=== PATIENT | male | born 1940 | race Caucasian/White ===

== ENCOUNTER 2024-07-05 18:22 | Inpatient (IN) | payer MEDICARE, OTHER ==
[~2024-07-05] VITALS: Ht 182.9 cm; Wt 67.1 kg
[2024-07-05 18:50] LABS: BASOPHILS % (AUTO) 0.4 % (0.0-2.0); EOSINOPHILS % (AUTO) 0.6 % (0.0-6.0); HEMATOCRIT 45 % (39-51); HEMOGLOBIN 15.7 g/dL (13.5-17.5); LYMPHOCYTES # (AUTO) 2.5 K/uL (0.8-4.8); LYMPHOCYTES % (AUTO) 36.4 % (20.0-44.0); MEAN CORPUSCULAR HEMOGLOBIN 31 PG (26.0-33.0); MEAN CORPUSCULAR HGB CONC 35 g/dl (31.0-36.0); MEAN CORPUSCULAR VOLUME 88 fL (80-96); MONOCYTES # (AUTO) 0.4 K/uL (0.1-1.30); MONOCYTES % (AUTO) 5.3 % (2.0-12.0); NEUTROPHILS % (AUTO) 57.3 % (43.0-81.0); PLATELET COUNT (AUTO) 191 K/uL (150-450); RED BLOOD CELL COUNT(AUTO) 5.11 MIL/uL (4.5-6.0); RED CELL DISTRIBUTION WIDTH 14.5 % (11.5-15.0); WHITE BLOOD COUNT (AUTO) 6.9 K/uL (4.3-11.0)
[2024-07-05 19:01] LABS: CALCIUM, SERUM 9.6 mg/dL (8.5-10.1); CARBON DIOXIDE 30 mmol/L (21-32); CHLORIDE 108 mmol/L (98-107); CREATININE 1.4 mg/dL (0.6-1.3); GLUCOSE 220 mg/dL (74-106); POTASSIUM 3.7 mmol/L (3.5-5.1); SODIUM SERUM 145 mmol/L (136-145); UREA NITROGEN, BLOOD 26 mg/dL (7-18)
[2024-07-05 19:11] LABS: ALANINE AMINOTRANSFERASE 30 U/L (12-78); ALBUMIN 3.3 g/dL (3.4-5.0); ALKALINE PHOSPHATASE 94 U/L (46-116); ASPARTATE AMINOTRANSFERASE 24 U/L (15-37); BILIRUBIN,DIRECT 0.1 mg/dL (0.0-0.2); BILIRUBIN,TOTAL 0.5 mg/dL (0.2-1.0); LIPASE 37 U/L (16-77); TOTAL PROTEIN, SERUM 7.1 g/dL (6.4-8.2)
[2024-07-05] MEDS ORDERED: MAGN400O6 PO (19:32)
[2024-07-05] MEDS ORDERED: AMLO-213 PO (19:32)
[2024-07-05] MEDS ORDERED: FOLI0.8T3 PO (19:32)
[2024-07-05] MEDS ORDERED: OXYC5TAB3 PO (19:32)
[2024-07-05] MEDS ORDERED: PANT40TA49 PO (19:32)
[2024-07-05] MEDS ORDERED: BACL5TAB PO (19:32)
[2024-07-05] MEDS ORDERED: NA P133E RC (19:32)
[2024-07-05] MEDS ORDERED: ACET325T53 PO (19:32)
[2024-07-05] MEDS ORDERED: ACET-73 PO (19:32)
[2024-07-05] MEDS ORDERED: ASPI-1420 PO (19:32)
[2024-07-05] MEDS ORDERED: TRAZ-182 PO (19:32)
[2024-07-05] MEDS ORDERED: NALO4SPR NS (19:32)
[2024-07-05] MEDS ORDERED: GABA-532 PO (19:32)
[2024-07-05] MEDS ORDERED: FERR325T24 PO (19:32)
[2024-07-05] MEDS ORDERED: DULO60CA45 PO (19:32)
[2024-07-05] MEDS ORDERED: DICL100G34 TP (19:32)
[2024-07-05] MEDS ORDERED: LATA2.5D15 EACHEYE (19:32)
[2024-07-05] MEDS ORDERED: BISA10SU11 RC (19:32)
[2024-07-05] MEDS ORDERED: VANCOMYCIN 1 GM /D5W 250 ML PB IV ONE (20:12)
[2024-07-05] MEDS ORDERED: PIPERACI/TAZO 3.375GM/D5W 50ML PB IV ONE (20:13)
[2024-07-05] MEDS: PIPERACILLIN /TAZOBACTAM 3.375 G in IV D5W 50 ML IV ONE (20:40)
[2024-07-05] MEDS: VANCOMYCIN 1 GM in IV D5W 250 ML IV ONE (21:10)
[2024-07-05] MEDS ORDERED: hydrALAZINE HCL IV 20 MG VIAL IV PRN (22:30)
[2024-07-05] MEDS ORDERED: ONDANSETRON HCL/PF 4 MG/2 ML VIAL IVP PRN (22:30)
[2024-07-05] MEDS ORDERED: ACETAMINOPHEN 325 MG TABLET PO PRN (22:30)
[2024-07-05] MEDS ORDERED: MORPHINE SULFATE INJ 2 MG/ML DISP.SYRIN IV PRN (22:30)
[2024-07-05] MEDS ORDERED: CEFEPIME 1 GM VIAL ONE (23:09)
[2024-07-05 23:25] VITALS: BP 126/80; TEMP 98.2; O2SAT 98
[2024-07-05] MEDS: IV NS 0.9% 1,000 ML IV SCH (23:39)
[2024-07-05] MEDS: CEFEPIME 2 GM in IV D5W 100 ML IV ONE (23:40)
[2024-07-06] VITALS: BP 126/80; TEMP 98.1; O2SAT 96
[2024-07-06 04:00] VITALS: BP 110/65; TEMP 98.2; O2SAT 97
[2024-07-06 07:46] LABS: BASOPHILS % (AUTO) 0.1 % (0.0-2.0); HEMATOCRIT 44 % (39-51); LYMPHOCYTES # (AUTO) 1.1 K/uL (0.8-4.8); LYMPHOCYTES % (AUTO) 12.1 % (20.0-44.0); MEAN CORPUSCULAR HEMOGLOBIN 30 PG (26.0-33.0); MEAN CORPUSCULAR HGB CONC 34 g/dl (31.0-36.0); MEAN CORPUSCULAR VOLUME 88 fL (80-96); MONOCYTES # (AUTO) 0.4 K/uL (0.1-1.30); MONOCYTES % (AUTO) 4.9 % (2.0-12.0); NEUTROPHILS # (AUTO) 7.5 K/uL (1.8-8.9); NEUTROPHILS % (AUTO) 82.9 % (43.0-81.0); PLATELET COUNT (AUTO) 192 K/uL (150-450); RED BLOOD CELL COUNT(AUTO) 5.03 MIL/uL (4.5-6.0); RED CELL DISTRIBUTION WIDTH 14.2 % (11.5-15.0)
[2024-07-06 08:00] VITALS: BP 110/63; TEMP 79.9; O2SAT 98
[2024-07-06] MEDS: FOLIC ACID 1 MG TABLET PO SCH (09:00)
[2024-07-06] MEDS: ASPIRIN EC 81 MG TABLET.DR PO SCH (09:00)
[2024-07-06] MEDS: DULOXETINE HCL 30 MG CAPSULE.DR PO SCH (09:00)
[2024-07-06] MEDS: GABAPENTIN 100 MG CAPSULE PO SCH (09:00)
[2024-07-06] MEDS: FERROUS SULFATE (325 MG) 325 MG/TAB TABLET PO SCH (09:00)
[2024-07-06] MEDS: AMLODIPINE BESYLATE 10 MG TABLET PO SCH (09:00)
[2024-07-06] MEDS: ZOSYN IVPB 3.375 G in IV D5W 50ml IV SCH (09:52)
[2024-07-06 10:26] LABS: BILIRUBIN,TOTAL 0.6 mg/dL (0.2-1.0); CALCIUM, SERUM 9.6 mg/dL (8.5-10.1); CREATININE 1.2 mg/dL (0.6-1.3); MAGNESIUM 2.1 mg/dL (1.8-2.4); PHOSPHORUS 3.1 mg/dL (2.5-4.9); POTASSIUM 3.9 mmol/L (3.5-5.1); TOTAL PROTEIN, SERUM 6.9 g/dL (6.4-8.2)
[2024-07-06] MEDS ORDERED: CEFEPIME 2 GM in IV D5W 100 ML IV SCH (11:00)
[2024-07-06 12:00] VITALS: BP 117/63; TEMP 98.1; O2SAT 99
[2024-07-06 12:09] LABS: INR 1.08 (0.91-1.10); PARTIAL THROMBOPLASTIN TIME 28.5 SEC (24.3-34.3); PROTHROMBIN TIME 11.4 SECS (9.2-11.1)
[2024-07-06] MEDS ORDERED: MIDAZOLAM HCL 2 MG/2ML VIAL IV PRN (14:30)
[2024-07-06] MEDS ORDERED: NALOXONE PREFILLED SYRINGE 2 MG/2 ML SYRINGE IV PRN (14:30)
[2024-07-06] MEDS ORDERED: FENTANYL PF 250MCG/5ML AMPUL IV PRN (14:30)
[2024-07-06] MEDS ORDERED: FLUMAZENIL 0.5 MG VIAL IV PRN (14:30)
[2024-07-06 16:00] VITALS: BP 119/71; TEMP 98.1; O2SAT 100
[2024-07-06 20:00] VITALS: BP 135/69; TEMP 98; O2SAT 100
[2024-07-06] MEDS: BACLOFEN (10 MG) 10 MG TABLET PO SCH (21:22)
[2024-07-06] MEDS: TRAZODONE 50 MG TABLET PO SCH (21:22)
[2024-07-06] MEDS: LATANOPROST EYE DROP 0.005% 2.5 ML BOTTLE EACHEYE SCH (23:03)
[2024-07-07] VITALS: BP 139/83; TEMP 99.3; O2SAT 96
[2024-07-07 04:00] VITALS: BP 116/45; TEMP 98.4; O2SAT 96
[2024-07-07 08:00] VITALS: BP 112/64; TEMP 98.6; O2SAT 96
[2024-07-07] MEDS: HEPARIN SODIUM, PORCINE 5000 UNITS/1 ML VIAL SQ SCH (08:45)
[2024-07-07 12:00] VITALS: BP 131/67; TEMP 98.6; O2SAT 96
[2024-07-07] MEDS: PIPERACILLIN /TAZOBACTAM 3.375 G in IV D5W 100 ML IV SCH (15:40)
[2024-07-07 16:00] VITALS: BP 122/76; TEMP 98.4; O2SAT 96
[2024-07-07 20:00] VITALS: BP 138/69; TEMP 98.4; O2SAT 98
[2024-07-08] VITALS: BP 142/77; TEMP 98.6; O2SAT 98
[2024-07-08 04:00] VITALS: BP 117/67; TEMP 98.1; O2SAT 98
[2024-07-08 08:00] VITALS: BP 136/70; TEMP 97.9; O2SAT 99
[2024-07-08 12:00] VITALS: BP 139/66; TEMP 98.1; O2SAT 99
[2024-07-08] MEDS ORDERED: BARIUM SULFATE 98% 135 ML SUSP.RECON PO ONE (13:42)
[2024-07-08 16:00] VITALS: BP 122/58; TEMP 98.2; O2SAT 99
[2024-07-08 20:00] VITALS: BP 132/78; TEMP 97.5; O2SAT 100
[2024-07-09 00:01] VITALS: BP 138/73; TEMP 97.9; O2SAT 99
[2024-07-09 04:00] VITALS: BP 123/63; TEMP 97.9; O2SAT 98
[2024-07-09 07:29] LABS: BASOPHILS % (AUTO) 0.1 % (0.0-2.0); EOSINOPHILS # (AUTO) 0.1 K/uL (0.0-0.7); EOSINOPHILS % (AUTO) 1.3 % (0.0-6.0); HEMATOCRIT 35 % (39-51); HEMOGLOBIN 12.1 g/dL (13.5-17.5); LYMPHOCYTES # (AUTO) 1.3 K/uL (0.8-4.8); LYMPHOCYTES % (AUTO) 27.8 % (20.0-44.0); MEAN CORPUSCULAR HEMOGLOBIN 30 PG (26.0-33.0); MEAN CORPUSCULAR HGB CONC 34 g/dl (31.0-36.0); MEAN CORPUSCULAR VOLUME 87 fL (80-96); MONOCYTES # (AUTO) 0.4 K/uL (0.1-1.30); MONOCYTES % (AUTO) 8.8 % (2.0-12.0); NEUTROPHILS # (AUTO) 2.9 K/uL (1.8-8.9); PLATELET COUNT (AUTO) 155 K/uL (150-450); RED BLOOD CELL COUNT(AUTO) 4.05 MIL/uL (4.5-6.0); RED CELL DISTRIBUTION WIDTH 13.9 % (11.5-15.0); WHITE BLOOD COUNT (AUTO) 4.7 K/uL (4.3-11.0)
[2024-07-09 07:42] LABS: INR 1.08 (0.91-1.10); PARTIAL THROMBOPLASTIN TIME 28.3 SEC (24.3-34.3); PROTHROMBIN TIME 11.4 SECS (9.2-11.1)
[2024-07-09 08:00] VITALS: BP 132/74; TEMP 97.9; O2SAT 100
[2024-07-09 08:05] LABS: CALCIUM, SERUM 9.1 mg/dL (8.5-10.1); CREATININE 0.9 mg/dL (0.6-1.3); POTASSIUM 4.2 mmol/L (3.5-5.1)
[2024-07-09 12:00] VITALS: BP 137/72; TEMP 97.7; O2SAT 94
[2024-07-09 16:00] VITALS: BP 138/75; TEMP 97.5; O2SAT 97
[2024-07-09 20:00] VITALS: BP 130/74; TEMP 98.4; O2SAT 98
[2024-07-10] VITALS: BP 133/58; TEMP 98.1; O2SAT 97
[2024-07-10 04:00] VITALS: BP 145/75; TEMP 97.7; O2SAT 100
[2024-07-10 08:00] VITALS: BP 155/81; TEMP 96.6; O2SAT 94
[2024-07-10 08:03] LABS: BASOPHILS % (AUTO) 0.2 % (0.0-2.0); EOSINOPHILS # (AUTO) 0.1 K/uL (0.0-0.7); EOSINOPHILS % (AUTO) 1.3 % (0.0-6.0); HEMATOCRIT 33 % (39-51); HEMOGLOBIN 12.1 g/dL (13.5-17.5); LYMPHOCYTES # (AUTO) 1.4 K/uL (0.8-4.8); LYMPHOCYTES % (AUTO) 34.3 % (20.0-44.0); MEAN CORPUSCULAR HEMOGLOBIN 31 PG (26.0-33.0); MEAN CORPUSCULAR HGB CONC 37 g/dl (31.0-36.0); MEAN CORPUSCULAR VOLUME 85 fL (80-96); MONOCYTES # (AUTO) 0.4 K/uL (0.1-1.30); MONOCYTES % (AUTO) 9.7 % (2.0-12.0); NEUTROPHILS # (AUTO) 2.2 K/uL (1.8-8.9); NEUTROPHILS % (AUTO) 54.5 % (43.0-81.0); PLATELET COUNT (AUTO) 173 K/uL (150-450); RED BLOOD CELL COUNT(AUTO) 3.92 MIL/uL (4.5-6.0); RED CELL DISTRIBUTION WIDTH 13.7 % (11.5-15.0)
[2024-07-10 08:17] LABS: CALCIUM, SERUM 8.5 mg/dL (8.5-10.1); CREATININE 0.8 mg/dL (0.6-1.3); MAGNESIUM 1.8 mg/dL (1.8-2.4); POTASSIUM 3.5 mmol/L (3.5-5.1)
[2024-07-10 12:00] VITALS: BP 140/85; TEMP 97.9; O2SAT 97
[2024-07-10 16:00] VITALS: BP 137/69; TEMP 97.9; O2SAT 98
[2024-07-10 20:00] VITALS: BP 109/73; TEMP 98.1; O2SAT 100
[2024-07-11] VITALS: BP 124/65; TEMP 98.5; O2SAT 98
[2024-07-11 04:00] VITALS: BP 105/51; TEMP 98.1; O2SAT 100
[2024-07-11 07:25] LABS: BASOPHILS % (AUTO) 0.2 % (0.0-2.0); EOSINOPHILS % (AUTO) 0.9 % (0.0-6.0); HEMATOCRIT 34 % (39-51); HEMOGLOBIN 12.3 g/dL (13.5-17.5); LYMPHOCYTES # (AUTO) 1.1 K/uL (0.8-4.8); MEAN CORPUSCULAR HEMOGLOBIN 31 PG (26.0-33.0); MEAN CORPUSCULAR HGB CONC 36 g/dl (31.0-36.0); MEAN CORPUSCULAR VOLUME 85 fL (80-96); MONOCYTES # (AUTO) 0.5 K/uL (0.1-1.30); MONOCYTES % (AUTO) 9.9 % (2.0-12.0); NEUTROPHILS # (AUTO) 3.2 K/uL (1.8-8.9); PLATELET COUNT (AUTO) 186 K/uL (150-450); RED BLOOD CELL COUNT(AUTO) 4.02 MIL/uL (4.5-6.0); RED CELL DISTRIBUTION WIDTH 13.6 % (11.5-15.0); WHITE BLOOD COUNT (AUTO) 4.8 K/uL (4.3-11.0)
[2024-07-11 07:54] LABS: CALCIUM, SERUM 8.5 mg/dL (8.5-10.1); CREATININE 0.9 mg/dL (0.6-1.3); PHOSPHORUS 3.1 mg/dL (2.5-4.9); POTASSIUM 3.7 mmol/L (3.5-5.1)
[2024-07-11 08:00] VITALS: BP 140/84; TEMP 97.7; O2SAT 100
[2024-07-11] MEDS ORDERED: PIPE3.379 IV (08:11)
[2024-07-11 08:29] VITALS: BP 140/84
== END 2024-07-11 11:40 | disposition hospice, inpatient (51) | DRG 205 ==
LOC: ER 18:39 → TELE1 21:06 → MEDSG1 07-11 08:40
PROVIDERS: ADMIT Internal Medicine; ATTEND Nurse Practitioner Acute Care
PROC: 0DB68ZX Excision of Stomach, Via Natural or Artificial Opening Endoscopic, Diagnostic (ICD-10-PCS; 2024-07-05)
PROC: 0DB68ZX Excision of Stomach, Via Natural or Artificial Opening Endoscopic, Diagnostic (ICD-10-PCS; 2024-07-05)
PROC: 0B9L3ZX Drainage of Left Lung, Percutaneous Approach, Diagnostic (ICD-10-PCS; principal; 2024-07-06)
DX: T17.928A Food in respiratory tract, part unspecified causing other injury, initial encounter (principal); G92.8 Other toxic encephalopathy; J69.0 Pneumonitis due to inhalation of food and vomit; J85.1 Abscess of lung with pneumonia; J96.00 Acute respiratory failure, unspecified whether with hypoxia or hypercapnia; N17.9 Acute kidney failure, unspecified; K51.20 Ulcerative (chronic) proctitis without complications; I69.354 Hemiplegia and hemiparesis following cerebral infarction affecting left non-dominant side; F01.53 Vascular dementia, unspecified severity, with mood disturbance; W44.F3XA Food entering into or through a natural orifice, initial encounter; Y92.129 Unspecified place in nursing home as the place of occurrence of the external cause; Z66 Do not resuscitate; I10 Essential (primary) hypertension; K29.70 Gastritis, unspecified, without bleeding; M06.9 Rheumatoid arthritis, unspecified; N40.0 Benign prostatic hyperplasia without lower urinary tract symptoms; E78.5 Hyperlipidemia, unspecified; Z87.19 Personal history of other diseases of the digestive system; R13.10 Dysphagia, unspecified; K21.9 Gastro-esophageal reflux disease without esophagitis; I48.91 Unspecified atrial fibrillation; F39 Unspecified mood [affective] disorder; Z88.8 Allergy status to other drugs, medicaments and biological substances; Z79.82 Long term (current) use of aspirin; Z79.899 Other long term (current) drug therapy; J98.09 Other diseases of bronchus, not elsewhere classified; F09 Unspecified mental disorder due to known physiological condition; K22.2 Esophageal obstruction; K31.7 Polyp of stomach and duodenum
CPT/HCPCS: 36415; 70490-TC; 71045-TC; 71250-TC; 74230-TC; 80048-TC; 80053-TC; 80076-TC; 83690-TC; 83735-TC; 84100-TC; 84484-TC; 85025-TC; 85610-TC; 85652-TC; 85730-TC; 86140-TC; 86850-TC; 87040-TC; 87081-TC; 88108-TC; 88305-TC; 92526; 92611-TC; A4223; G0378; J0692; J1644; J2543; J2704; J3010; J3370; J3490; J7030; J7042; J7050; J7060